=== PATIENT | female | born 1960 | race Caucasian/White ===

== ENCOUNTER 2016-09-10 14:10 | Inpatient (IN) | payer OTHER ==
[~2016-09-10] VITALS: Ht 162.6 cm; Wt 60.1 kg
[~2016-09-10 14:10] MED LIST: ALTACE5 MG PO; AMLODIPINE BESYL5 MG PO; BENADRYL25 MG PO; BUSPAR5 MG PO; CLINDAMYCIN HC300 MG PO; FENOFIBRATE160 M1 PO; FLAGYL500 MG PO; FORTAMET500 MG PO; GLYBURIDE5 MG PO; K-DUR20 MEQ PO; KLONOPIN0.5 M1 PO; LANTUS (UNITS)1 UNIT SC; LANTUS 3 M100 UNITS1 SC; LEVOTHYROXINE100 MCG PO; LOSARTAN POTAS100 MG PO; LYRICA300 MG PO; MECLIZINE HCL25 MG PO; METFORMIN HCL1000 MG PO; METFORMIN HCL500 MG PO; MICRONASE5 MG PO; NOVOLIN N100 UNITS/ SC; OMEPRAZOLE40 M1 PO; PRILOSEC40 MG PO; STOOL SOFTENER100 MG PO; SYNTHROID100 MCG PO; TRAMADOL HCL50 MG PO; VENLAFAXINE HC150 M1 PO; VICODIN,LORT1 TABLET PO; VITAMIN E100 UNIT PO
[2016-09-10 15:25] LABS: HEMATOCRIT 45.9 % (36.0-46.0); MCH 29.2 PG (29.0-34.0); MCHC 35.3 G/DL (30.0-36.0); MCV 82.7 FL (83-99); MEAN PLAT.VOLUME 9.8 uM^3 (9.5-12.4); PLATELET COUNT 312 K/uL (156-360); RBC DIS.WIDTH-CV 13.2 % (11.8-14.6); RBC DIS.WIDTH-SD 39.7 % (39-53); RED BLOOD COUNT 5.55 M/uL (3.80-5.20); WHITE BLOOD COUNT 13.9 K/uL (4.1-10.2)
[2016-09-10 15:36] LABS: CHLORIDE 94 mEq/L (99-109); POTASSIUM 2.8 mEq/L (3.7-5.4); SODIUM 137 mEq/L (136-147)
[2016-09-10 15:39] LABS: ANION GAP 14 MEQ/L (2-14)
[2016-09-10 15:40] LABS: TOTAL BILIRUBIN 0.3 mg/dL (0.0-1.0)
[2016-09-10 15:41] LABS: ALKALINE PHOSPHATASE 155 IU/L (3-129)
[2016-09-10 15:42] LABS: GFR ESTIMATE (CALCULATED) 54 mL/min/
[2016-09-10 15:43] LABS: GLUCOSE 458 mg/dL (70-99); UREA NITROGEN (BUN) 11 mg/dL (9-23)
[2016-09-10 15:45] LABS: LIPASE 37 U/L (1.0-51.0)
[2016-09-10 16:15] LABS: ADD MIUA? YES; BILIRUBIN NEGATIVE; BLOOD SMALL; COLOR STRAW ((YELLOW)); GLUCOSE (STRIP) >=500; KETONES NEGATIVE; LEUKOCYTES NEGATIVE; NITRITE NEGATIVE; PROTEIN (STRIP) >=500; SPECIFIC GRAVITY 1.017 (1.000-1.030); UROBILINOGEN 0.2 MG/DL (0.2-1.0)
[2016-09-10 16:40] LABS: CASTS NONE SEEN /LPF; EPITHELIAL CELLS 2+ /HPF; MUCUS NONE SEEN /LPF; RED BLOOD CELLS RARE /HPF (0-5); WHITE BLOOD CELLS 0-5 /HPF (0-5)
[2016-09-10 16:41] LABS: BACTERIA RARE /HPF; UCUL ADDED? NO
[2016-09-11 01:31] VITALS: BP 174/83
[2016-09-11 01:58] LABS: CHLORIDE 98 mEq/L (99-109); POTASSIUM 3.2 mEq/L (3.7-5.4); SODIUM 132 mEq/L (136-147)
[2016-09-11 02:01] LABS: ANION GAP 13 MEQ/L (2-14)
[2016-09-11 02:03] LABS: GFR ESTIMATE (CALCULATED) 54 mL/min/
[2016-09-11 02:04] LABS: UREA NITROGEN (BUN) 14 mg/dL (9-23)
[2016-09-11 02:05] LABS: GLUCOSE 686 mg/dL (70-99)
[2016-09-11 02:09] LABS: GLUCOSE 682 mg/dL (70-99)
[2016-09-11 03:30] VITALS: BP 185/88
[2016-09-11 07:21] LABS: ALKALINE PHOSPHATASE 110 IU/L (3-129); ANION GAP 10 MEQ/L (2-14); CHLORIDE 100 MEQ/L (99-109); GFR ESTIMATE (CALCULATED) > 59 mL/min/; POTASSIUM 2.9 MEQ/L (3.7-5.4); SAMPLE HEMOLYSIS CHECK 0; SAMPLE ICTERIC CHECK 0; SAMPLE LIPEMIA CHECK 0; SODIUM 138 MEQ/L (136-147); TOTAL BILIRUBIN 0.3 MG/DL (0.0-1.0); UREA NITROGEN (BUN) 13 mg/dL (9-23)
[2016-09-11 07:22] LABS: GLUCOSE 301 mg/dL (70-99)
[2016-09-11 07:31] LABS: EOSINOPHIL (%) 0 % (0-5); HEMATOCRIT 38.5 % (36.0-46.0); IMMATURE GRANULOCYTE (%) 0.5 % (0.0-0.7); IMMATURE GRANULOCYTE COUNT 0.1 K/uL; INSTRUMENT ABS NEUTROPHIL CT 10.4 K/uL; LYMPHOCYTE COUNT 3.5 K/uL (1.0-2.8); MCH 28.9 PG (29.0-34.0); MCHC 34.5 G/DL (30.0-36.0); MCV 83.5 FL (83-99); MEAN PLAT.VOLUME 10.3 uM^3 (9.5-12.4); MONOCYTE (%) 6.8 % (3-12); NEUTROPHIL COUNT 10.4 K/uL (1.8-6.4); PLATELET COUNT 280 K/uL (156-360); RBC DIS.WIDTH-CV 13.3 % (11.8-14.6); RBC DIS.WIDTH-SD 40.6 % (39-53); RED BLOOD COUNT 4.61 M/uL (3.80-5.20)
[2016-09-11 07:40] VITALS: BP 171/83
[2016-09-11 09:37] LABS: MAGNESIUM 1.5 mg/dl (1.3-2.7)
[2016-09-11 11:00] VITALS: BP 187/90
[2016-09-11 11:56] LABS: Estimated Average Glucose 301 mg/dL (70-123); HEMOGLOBIN A1c (GLYCOHEMOGLOB) 12.1 % HGB (Below 5.7)
[2016-09-11 15:20] VITALS: BP 167/89
[2016-09-11 21:09] VITALS: BP 181/82
[2016-09-12] VITALS (7 sets, daily range): BP systolic 128–175; BP diastolic 71–94
[2016-09-12 07:04] LABS: ANION GAP 9 MEQ/L (2-14); CHLORIDE 107 MEQ/L (99-109); GFR ESTIMATE (CALCULATED) > 59 mL/min/; POTASSIUM 2.6 MEQ/L (3.7-5.4); SAMPLE HEMOLYSIS CHECK 0; SAMPLE ICTERIC CHECK 0; SAMPLE LIPEMIA CHECK 0; UREA NITROGEN (BUN) 9 mg/dL (9-23)
[2016-09-12 07:05] LABS: GLUCOSE 70 mg/dL (70-99); SODIUM 145 MEQ/L (136-147)
[2016-09-12 07:10] LABS: HEMATOCRIT 38.5 % (36.0-46.0); MCH 29.3 PG (29.0-34.0); MCHC 34.3 G/DL (30.0-36.0); MCV 85.4 FL (83-99); MEAN PLAT.VOLUME 10.2 uM^3 (9.5-12.4); PLATELET COUNT 272 K/uL (156-360); RBC DIS.WIDTH-CV 13.5 % (11.8-14.6); RBC DIS.WIDTH-SD 41.5 % (39-53); RED BLOOD COUNT 4.51 M/uL (3.80-5.20); WHITE BLOOD COUNT 11.6 K/uL (4.1-10.2)
[2016-09-12 07:12] LABS: POINT-OF-CARE METER ID UU14162508
[2016-09-12 09:46] LABS: MAGNESIUM 1.6 mg/dl (1.3-2.7)
[2016-09-12 11:43] LABS: POINT-OF-CARE METER ID UU14162508
[2016-09-12 17:04] LABS: POINT-OF-CARE METER ID UU14162508
[2016-09-12 18:03] LABS: ANION GAP 9 MEQ/L (2-14); CHLORIDE 104 MEQ/L (99-109); GFR ESTIMATE (CALCULATED) > 59 mL/min/; SAMPLE HEMOLYSIS CHECK 0; SAMPLE ICTERIC CHECK 0; SAMPLE LIPEMIA CHECK 2; SODIUM 138 MEQ/L (136-147); UREA NITROGEN (BUN) 9 mg/dL (9-23)
[2016-09-12 18:04] LABS: GLUCOSE 144 mg/dL (70-99); POTASSIUM 3.5 MEQ/L (3.7-5.4)
[2016-09-13 04:34] LABS: POINT-OF-CARE METER ID UU14162508
[2016-09-13 06:49] LABS: POINT-OF-CARE METER ID UU14162508
[2016-09-13 06:57] VITALS: BP 186/91
[2016-09-13 07:13] LABS: BASOPHIL COUNT 0.1 K/uL (0-0.1); EOSINOPHIL (%) 0.2 % (0-5); HEMATOCRIT 36.8 % (36.0-46.0); IMMATURE GRANULOCYTE (%) 0.8 % (0.0-0.7); IMMATURE GRANULOCYTE COUNT 0.1 K/uL; LYMPHOCYTE COUNT 4.1 K/uL (1.0-2.8); MCH 29.5 PG (29.0-34.0); MCHC 33.7 G/DL (30.0-36.0); MCV 87.6 FL (83-99); MEAN PLAT.VOLUME 10.3 uM^3 (9.5-12.4); MONOCYTE (%) 8.1 % (3-12); MONOCYTE COUNT 0.8 K/uL (0-0.8); NEUTROPHIL (%) 49.4 % (45-76); PLATELET COUNT 239 K/uL (156-360); RBC DIS.WIDTH-CV 13.7 % (11.8-14.6); RBC DIS.WIDTH-SD 43.2 % (39-53)
[2016-09-13 07:37] LABS: ANION GAP 6 MEQ/L (2-14); CHLORIDE 106 MEQ/L (99-109); GFR ESTIMATE (CALCULATED) > 59 mL/min/; GLUCOSE 175 mg/dL (70-99); MAGNESIUM 1.7 mg/dl (1.3-2.7); POTASSIUM 3.8 MEQ/L (3.7-5.4); SAMPLE HEMOLYSIS CHECK 0; SAMPLE ICTERIC CHECK 0; SAMPLE LIPEMIA CHECK 0; SODIUM 139 MEQ/L (136-147); UREA NITROGEN (BUN) 12 mg/dL (9-23)
[2016-09-13 11:16] LABS: POINT-OF-CARE METER ID UU14162508
[2016-09-13] MEDS ORDERED: AMLODIPINE BESY10 MG PO (11:34)
[2016-09-13] MEDS ORDERED: SPIRONOLACTONE50 MG PO (11:34)
[2016-09-13] MEDS ORDERED: FLAGYL500 MG PO (11:34)
[2016-09-13] MEDS ORDERED: CIPRO500 MG PO (11:34)
[2016-09-13 11:39] VITALS: BP 156/83
[2016-09-13 12:01] LABS: POINT-OF-CARE METER ID UU14162508
[2016-09-13 14:35] LABS: UR CREATININE CONCENTRATION 34.2 MG/DL
== END 2016-09-13 13:19 | disposition home or self-care (01) | DRG 872 ==
LOC: EME 14:10 → EDOF 22:50 → 2EAST 22:50
PROVIDERS: Emergency Medicine; Hospitalist; Internal Medicine; Internal Medicine Nephrology
DX: A41.9 Sepsis, unspecified organism (principal); K52.9 Noninfective gastroenteritis and colitis, unspecified; E87.6 Hypokalemia; E86.0 Dehydration; E11.65 Type 2 diabetes mellitus with hyperglycemia; Z79.4 Long term (current) use of insulin; E03.9 Hypothyroidism, unspecified; I10 Essential (primary) hypertension; J98.4 Other disorders of lung; E83.42 Hypomagnesemia; N95.2 Postmenopausal atrophic vaginitis; B37.3 Candidiasis of vulva and vagina; F32.9 Major depressive disorder, single episode, unspecified; F41.9 Anxiety disorder, unspecified; K21.9 Gastro-esophageal reflux disease without esophagitis; E78.00 Pure hypercholesterolemia, unspecified; F17.210 Nicotine dependence, cigarettes, uncomplicated
CPT/HCPCS: 71250; 74177; 76770; 80048; 80048 91; 80053; 81003; 82088 90; 82436; 82533 91; 82570; 82948; 83036; 83605; 83630; 83690; 83735; 83930; 83935; 84133; 84156; 84244 90; 84300; 84999; 85025; 85027; 87040; 87493; 93005; 93975; 99281; 99285; J0744; J1200; J1644; J1815; J2270; J2405; J2930; J3475; J3480; J7030; S0030

== ENCOUNTER 2016-11-05 05:23 | Inpatient (IN) | payer OTHER ==
[~2016-11-05] VITALS: Ht 162.6 cm; Wt 58.1 kg
[~2016-11-05 05:23] MED LIST changes: +AMLODIPINE BESY10 MG PO; +CIPRO500 MG PO; +SPIRONOLACTONE50 MG PO; +VITAMIN D31000 UNI2 PO
[2016-11-05 06:12] VITALS: BP 166/88
[2016-11-05 06:36] LABS: POINT-OF-CARE METER ID UU14174212
[2016-11-05] MEDS ORDERED: PERCOCET 5/31 TABLET PO (09:15)
[2016-11-05 09:34] LABS: POINT-OF-CARE METER ID UU13113675
[2016-11-05 10:44] VITALS: BP 183/86
== END 2016-11-05 16:27 | disposition home or self-care (01) | DRG 42 ==
LOC: 2SOUTH 05:23 → 5EAST 05:23 → 2SOUTH 08:00 → SDC 09:35 → EDSTATUS 10:00 → 2SOUTH 10:10 → 5EAST 10:16 → EDSTATUS 15:55 → 2SOUTH 15:55 → SDC 15:56 → 5EAST 16:27
PROVIDERS: Surgery
DX: G89.28 Other chronic postprocedural pain (principal); K66.0 Peritoneal adhesions (postprocedural) (postinfection)
CPT/HCPCS: 82948; 88304; J0330; J1100; J1170; J2405; J2710; J3010; J7120

== ENCOUNTER 2017-01-20 14:24 | Emergency (ER) | payer OTHER ==
[~2017-01-20] VITALS: Ht 162.6 cm; Wt 53.0 kg
[~2017-01-20 14:24] MED LIST changes: +PERCOCET 5/31 TABLET PO
[2017-01-20] MEDS ORDERED: NORCO 5/3251 TABLET PO (17:01)
[2017-01-20 17:35] VITALS: BP 189/98
== END 2017-01-20 17:35 | disposition home or self-care (01) ==
LOC: EME 14:24
DX: S80.02XA Contusion of left knee, initial encounter (principal); S70.02XA Contusion of left hip, initial encounter; W10.9XXA Fall (on) (from) unspecified stairs and steps, initial encounter; M79.7 Fibromyalgia; J44.9 Chronic obstructive pulmonary disease, unspecified; E78.5 Hyperlipidemia, unspecified; I10 Essential (primary) hypertension; E11.9 Type 2 diabetes mellitus without complications; Z79.84 Long term (current) use of oral hypoglycemic drugs; Z79.4 Long term (current) use of insulin; Z72.0 Tobacco use
CPT/HCPCS: 73502; 73564; 99281; 99284